=== PATIENT | female | born 1990 | race Caucasian/White ===

== ENCOUNTER → 2021-06-27 12:45 | Outpatient (CLI) | payer BC, SELFPAY ==
--- NOTE | 2021-06-27 | DI.CT.S_ITS ---
PROCEDURE: CT ABDOMEN PELVIS W CON INDICATIONS: Unspecified abdominal pain TECHNIQUE: After the administration of oral Volumen contrast and intravenous contrast, 3 mm thick sections acquired from the diaphragm to the symphysis. Coronal and sagittal 3 mm reformatted images acquired through the small and large bowel. For radiation dose reduction, the following was used: automated exposure control, adjustment of mA and/or kV according to patient size. COMPARISON: None. FINDINGS: Image quality: Excellent. ABDOMEN: Lung bases: Lung bases are clear. Heart size is normal. Bowel and peritoneum: Isodense oral contrast is present, and contrast enhanced small bowel loops demonstrate normal wall thickness and caliber. Colon loops are also normal in caliber. No free fluid or air. Solid organs: Liver is normal in size and enhancement. Gallbladder is unremarkable . Biliary system is non dilated, without findings to suggest primary sclerosing cholangitis. Pancreas enhances normally, without evidence for autoimmune pancreatitis. Spleen is normal in size and enhancement. No adrenal nodules. Kidneys demonstrate normal size and enhancement, without hydronephrosis. Nodes and vessels: No retroperitoneal or mesenteric adenopathy by size criteria. Aorta and inferior vena cava are normal in caliber. Miscellaneous: No ventral hernias. PELVIS: Genitourinary: Bladder wall thickness is normal. Miscellaneous: No inguinal hernias or adenopathy. Bones: No suspicious bony lesions. No vertebral body compression fractures. No findings to suggest sacroiliitis. Femoral heads demonstrate no findings of advanced avascular necrosis. There is a moderate central posterior disc protrusion at L3-L4 indenting on the thecal sac. There is a mild left paracentral disc protrusion at L4-L5. IMPRESSION: 1. No evidence of small bowel pathology. 2. Mild hepatic steatosis. 3. Incidental note is made of the presence of a moderate central posterior disc protrusion at L3-L4 indenting on the thecal sac, as well as a mild left paracentral disc protrusion at L4-L5. Dictated by: Levon Doyle M.D. on 06/27/2021 at 15:46 Approved by: Levon Doyle M.D. on 06/27/2021 at 15:55
== END ==
PROVIDERS: PCP Physician Assistant Medical; Referring Provider Internal Medicine Gastroenterology; Visit Provider Internal Medicine Gastroenterology
DX: R10.9 Unspecified abdominal pain (principal); R19.7 Diarrhea, unspecified; K59.00 Constipation, unspecified; K76.0 Fatty (change of) liver, not elsewhere classified; M51.26 Other intervertebral disc displacement, lumbar region
CPT/HCPCS: 74177; Q9967

== ENCOUNTER → 2022-03-12 13:20 | Outpatient (CLI) | payer OTHER, SELFPAY ==
[2022-03-12 14:06] LABS: Add Manual Diff / Slide Review NO; Basophils Absolute Auto 100 /uL (0-100); Basophils Percent Auto 0.7 % (0-2); Eosinophils Absolute Auto 200 /uL (0-450); Eosinophils Percent Auto 2.3 % (2-4); Hematocrit 31.9 % (36-46); Lymphocytes Absolute Auto 2300 /uL (1100-4500); Lymphocytes Percent Auto 29.7 % (25-40); Mean Corpuscular HGB Conc 31.4 % (30-36); Mean Corpuscular Hemoglobin 19.8 PG (26-34); Monocytes Absolute Auto 400 /uL (0-900); Monocytes Percent Auto 5.5 % (3-14); Neutrophils Absolute Auto 4700 /uL (1500-7000); Neutrophils Percent Auto 61.8 % (50-75); Platelet Count 279 X10^3/uL (150-400); Red Blood Cell Count 5.06 X10^6/uL (4.0-5.2); Red Cell Distribution Width 28.6 % (11.6-14.8); White Blood Cell Count 7.6 X10^3/uL (4.5-11.0)
[2022-03-12 14:36] LABS: Anisocytosis 2+; Hypochromasia 1+; Microcytosis 2+; Ovalocytes 1+; Polychromasia 1+
[2022-03-12 15:56] LABS: Free T4, Direct Thyroxine 1.19 ng/dL (0.78-2.19)
[2022-03-12 16:10] LABS: Thyroid Stimulating Hormone 1.53 uIU/mL (0.47-4.68)
== END ==
PROVIDERS: PCP Physician Assistant Medical; Referring Provider Obstetrics & Gynecology; Visit Provider Obstetrics & Gynecology
DX: N93.9 Abnormal uterine and vaginal bleeding, unspecified (principal)
CPT/HCPCS: 36415; 84439; 84443; 85025

== ENCOUNTER → 2022-04-10 15:26 | Outpatient (CLI) | payer OTHER, SELFPAY ==
[2022-04-10 16:19] LABS: Add Manual Diff / Slide Review NO; Basophils Absolute Auto 0 /uL (0-100); Basophils Percent Auto 0.5 % (0-2); Eosinophils Absolute Auto 200 /uL (0-450); Eosinophils Percent Auto 2.2 % (2-4); Hematocrit 36.8 % (36-46); Hemoglobin 11.8 g/dL (12.0-16.0); Lymphocytes Absolute Auto 2600 /uL (1100-4500); Lymphocytes Percent Auto 26.4 % (25-40); Mean Corpuscular HGB Conc 31.9 % (30-36); Monocytes Absolute Auto 500 /uL (0-900); Monocytes Percent Auto 4.8 % (3-14); Neutrophils Absolute Auto 6600 /uL (1500-7000); Neutrophils Percent Auto 66.1 % (50-75); Platelet Count 295 X10^3/uL (150-400); Red Blood Cell Count 5.34 X10^6/uL (4.0-5.2); Red Cell Distribution Width 31.8 % (11.6-14.8); White Blood Cell Count 9.9 X10^3/uL (4.5-11.0)
[2022-04-10 16:37] LABS: Alanine Aminotransferase 24 IU/L (<35); Albumin 4.4 g/dL (3.5-5.0); Albumin Globulin Ratio 1.2 (1.0-2.8); Alkaline Phosphatase 85 U/L (38-126); Aspartate Aminotransferase 20 IU/L (14-36); BUN Creatinine Ratio 21.4 (6-22); Bilirubin Total 0.3 mg/dL (0.2-1.3); Blood Urea Nitrogen 15 mg/dL (7-17); Calcium 8.9 mg/dL (8.4-10.2); Carbon Dioxide 28 mmol/L (22-32); Chloride 104 mmol/L (98-107); Estimated Glomerular Filt Rate > 60 mL/min (>60); Globulin 3.6 g/dL (1.7-4.1); Glucose 94 mg/dL (70-100); HEMOLYSIS < 15 (0-50); Potassium 4.4 mmol/L (3.4-5.1); Sodium 140 mmol/L (137-145)
[2022-04-10 16:59] LABS: HEMOLYSIS < 15 (0-50); Iron 40 ug/dL (37-170)
[2022-04-10 17:07] LABS: Hypochromasia 1+; Microcytosis 1+
[2022-04-10 17:11] LABS: Percent Iron Saturation 16 % (15-50); Total Iron Binding Capacity 253 ug/dL (265-497); Transferrin 182 mg/dL (206-381)
== END ==
PROVIDERS: PCP Physician Assistant Medical; Referring Provider Internal Medicine Gastroenterology; Visit Provider Internal Medicine Gastroenterology
DX: R10.11 Right upper quadrant pain (principal); E61.1 Iron deficiency
CPT/HCPCS: 36415; 80053; 83540; 83550; 85025

== ENCOUNTER → 2022-06-05 13:46 | Outpatient (CLI) | payer OTHER, SELFPAY ==
[2022-06-05 14:44] LABS: COVID19 -Nasal RAPID Negative (Negative)
== END ==
PROVIDERS: PCP Physician Assistant Medical; Visit Provider Obstetrics & Gynecology
DX: Z20.822 Contact with and (suspected) exposure to COVID-19 (principal); Z01.812 Encounter for preprocedural laboratory examination
CPT/HCPCS: 87635

== ENCOUNTER 2022-06-06 09:50 | Day surgery (SDC) | payer OTHER, SELFPAY ==
[2022-06-03 15:17] VITALS: BMI 49.5
--- NOTE | 2022-06-06 | PATH_ITS ---
[facility] Accession Number: [id number] . 01 Material submitted: . endometrium - ENDOMETRIAL BIOPSY CURETTINGS . 01 Diagnosis: Endometrial Biopsy Curettings: Portions of disordered proliferative endometrium; negative for glandular hyperplasia, cytologic atypia, or malignancy. Some endometrial fragments demonstrate prominent vessels, suggestive of polyp, if clinical and imaging studies are concordant. MRV 06/09/2022 1113 Local . 01 Electronically signed: . Irina Coburn MD, Pathologist NPI- [id number] . 01 Gross description: . ENDOMETRIAL BIOPSY CURETTINGS: Received in formalin are minute fragments of mucoid and hemorrhagic material measuring 2.7 x 3.3 x 0.1 cm in aggregate. Submitted in toto in 1 cassette. /CPE 06/07/2022 0451 Local . 01 Pathologist provided ICD-10: N93.9 . 01 CPT . 581254 Specimen Comment: A courtesy copy of this report has been sent to [phone] Performed at: [facility] [address] [place] [address], [place], [place] [id number] MD Bernardo Sapp MD Phone: [phone]
[2022-06-06 10:12] VITALS: BP 127/86; PULSE 80; RESP 16; TEMP 36.3; O2SAT 98; BMI 49.5
--- NOTE | 2022-06-06 10:12 | PM.PREOP ---
Pre-operative Note COVID-19 COVID-19 status: Negative Result date/Date tested (Pos, Neg/Pending): 06/05/22 Criteria for continued procedure: Non-surgical alternatives not available or appropriate per current SOC Interval Note History & Physical reviewed/Exam performed by Physician: Yes Changes to H&P: No
[2022-06-06] MEDS: LACTATED RINGERS 1,000 ML 42 ML IV (10:24)
[2022-06-06 10:40] VITALS: BMI 49.5
--- NOTE | 2022-06-06 10:52 | SUR.OPER ---
Lithotomy on padded OR bed, head on pillow, arms secured on padded arm boards at <90 degrees abduction. Legs secured in padded yellow fins stirrups.
[2022-06-06 11:08] VITALS: BP 113/76; PULSE 71; RESP 16; TEMP 36.8; O2SAT 95
[2022-06-06 11:16] VITALS: BP 111/75; PULSE 68; RESP 16; TEMP 36.8; O2SAT 98
--- NOTE | 2022-06-06 11:16 | PM.OP.1 ---
Operative Date/Time/Diagnoses Date of procedure: 06/06/22 Time of procedure: 10:45 Pre-op diagnosis: abnormal uterine bleeding Post-op diagnosis: same Procedure & Clinicians Procedure: EUA, endometrial biopsy Same procedure as scheduled: Yes Indications: abnormal uterine bleeding Surgeon: Tatum Rodriguez Click Yes if Unassisted: Yes Anesthesia Type: Sedation Operative Notes Findings: Normal vulva, vagina. Nulliparous cervix. Specimen(s): other (endometrial curettings) Estimated Blood Loss (mL): 5 Procedure in detail: After informed consent was obtained the patient was taken to the operating room. A test was negative. IV sedation was obtained and she was placed in the dorsal lithotomy position. A bariatric michael speculum was inserted and the cervix visualized with some difficulty. Ongoing bleeding meant that a pap smear was deferred. A single toothed tenaculum was used to grasp the anterior lip of the cervix, the cervix was prepped with betadine, and an endometrial biopsy pipelle was used to collect a significant amount of tissue. The tenaculum was removed with spontaneous hemostasis noted. The patient was taken to PACU in stable condition. IVF 200ccs LR Complications: none Post-operative Condition: stable Disposition: PACU Plan for aftercare: Routine postop care
[2022-06-06 11:25] VITALS: BP 106/72; PULSE 70; RESP 16; TEMP 36.8; O2SAT 98
== END 2022-06-06 11:29 | disposition home or self-care (01) ==
PROVIDERS: PCP Physician Assistant Medical; Referring Provider Obstetrics & Gynecology; Visit Provider Obstetrics & Gynecology
PROC: (CPT 57410; principal; 2022-06-06 10:45)
DX: N93.9 Abnormal uterine and vaginal bleeding, unspecified (principal)
CPT/HCPCS: 58100; J2250; J2704

== ENCOUNTER → 2023-02-12 09:55 | Outpatient (CLI) | payer OTHER, SELFPAY ==
[2023-02-12 10:32] LABS: Add Manual Diff / Slide Review NO; Basophils Absolute Auto 100 /uL (0-100); Basophils Percent Auto 0.7 % (0-2); Eosinophils Absolute Auto 300 /uL (0-450); Eosinophils Percent Auto 3.8 % (2-4); Hematocrit 37.8 % (36-46); Hemoglobin 12.5 g/dL (12.0-16.0); Lymphocytes Absolute Auto 2000 /uL (1100-4500); Lymphocytes Percent Auto 24.6 % (25-40); Mean Corpuscular Volume 81.8 fL (80-100); Monocytes Absolute Auto 400 /uL (0-900); Monocytes Percent Auto 5.3 % (3-14); Neutrophils Absolute Auto 5300 /uL (1500-7000); Neutrophils Percent Auto 65.6 % (50-75); Platelet Count 261 X10^3/uL (150-400); Red Blood Cell Count 4.62 X10^6/uL (4.0-5.2); Red Cell Distribution Width 14.1 % (11.6-14.8)
[2023-02-12 11:07] LABS: TSH w/ Reflex to FT4 1.82 uIU/mL (0.47-4.68)
== END ==
PROVIDERS: PCP Physician Assistant Medical; Referring Provider Specialist; Visit Provider Specialist
DX: N93.9 Abnormal uterine and vaginal bleeding, unspecified (principal)
CPT/HCPCS: 36415; 84443; 85025